=== PATIENT | female | born 1985 | race Caucasian/White ===

== ENCOUNTER → 2017-01-28 | Outpatient (CLI) | payer OTHER ==
--- NOTE | 2017-01-29 13:20 | REP ---
RIGHT FOOT SERIES: Four views of the right foot are performed. There is an oblique fracture of the shaft of the third proximal phalanx. This is not significantly displaced. No other acute fracture or dislocation is seen of the visualized osseous structures. Signed by Junito Chan MD 01/29/2017 07:02 P
== END ==
LOC: M WUC 15:19
PROVIDERS: ATTEND Physician Assistant
DX: S90.31XA Contusion of right foot, initial encounter (principal); W18.30XA Fall on same level, unspecified, initial encounter; Y92.009 Unspecified place in unspecified non-institutional (private) residence as the place of occurrence of the external cause

== ENCOUNTER → 2017-05-09 | Outpatient (REF) | payer OTHER ==
[2017-05-10 11:27] LABS: CHLAMYDIA DNA AMPLIFICATION NEGATIVE (NEGATIVE); GC DNA AMPLIFICATION NEGATIVE (NEGATIVE)
== END ==
LOC: M LAB REF 09:17
DX: R30.0 Dysuria (principal)

== ENCOUNTER 2018-02-02 12:22 | Emergency (ER) | payer OTHER ==
[2018-02-02] MEDS ORDERED: methylPREDNISolone INJ 125 MG/2 ML VIAL (J2930) IV (13:00)
[2018-02-02] MEDS: methylPREDNISolone 1,000 MG, VIAL MATE ADAPTER 1 EACH in D5W 250 ML IV (13:21)
[2018-02-02] MEDS ORDERED: PROHANCE 279.3MG/ML 5ML VIAL (A9576) As Ordered (22:07)
[2018-02-02] MEDS ORDERED: PROHANCE 279.3MG/ML 15ML VIAL (A9576) As Ordered (22:07)
== END 2018-02-03 00:55 | disposition home or self-care (01) ==
LOC: M ED 02-03 00:55
DX: H54.7 Unspecified visual loss (principal); H46.9 Unspecified optic neuritis; Z79.2 Long term (current) use of antibiotics; Z79.52 Long term (current) use of systemic steroids; Z79.899 Other long term (current) drug therapy
CPT/HCPCS: A9576

== ENCOUNTER 2018-02-03 13:57 | Emergency (ER) | payer OTHER ==
[2018-02-03] MEDS ORDERED: methylPREDNISolone INJ 125 MG/2 ML VIAL (J2930) IV (14:30)
[2018-02-03] MEDS: methylPREDNISolone 1,000 MG, VIAL MATE ADAPTER 1 EACH in D5W 250 ML IV (14:59)
== END 2018-02-03 16:36 | disposition home or self-care (01) ==
LOC: M ED 13:57
DX: H46.9 Unspecified optic neuritis (principal)
CPT/HCPCS: J2930

== ENCOUNTER 2018-02-04 14:35 | Emergency (ER) | payer OTHER ==
[2018-02-04] MEDS: methylPREDNISolone INJ 125 MG/2 ML VIAL (J2930) IV (15:50)
== END 2018-02-04 17:26 | disposition home or self-care (01) ==
LOC: M ED 14:35
DX: H46.9 Unspecified optic neuritis (principal); Z79.899 Other long term (current) drug therapy; Z79.52 Long term (current) use of systemic steroids; Z79.2 Long term (current) use of antibiotics
CPT/HCPCS: J2930

== ENCOUNTER → 2018-06-09 | Outpatient (CLI) | payer OTHER ==
[~2018-06-09] MED LIST: AMOX500C PO; PRED20TA PO; REFRSOL OU
[2018-06-09 12:06] LABS: FREE T4 0.99 NG/DL (0.76-1.46); THYROID STIMULATING HORMONE 2.03 uIU/ML (0.358-3.740)
== END ==
LOC: M LAB 11:15
PROVIDERS: ATTEND Obstetrics & Gynecology Obstetrics
DX: L65.9 Nonscarring hair loss, unspecified (principal)

== ENCOUNTER → 2018-06-11 | Outpatient (CLI) | payer OTHER ==
[2018-06-13 14:36] LABS: ANTINUCLEAR ANTIBODIES DIRECT Negative (Negative); DEHYDROEPIANDROSTERONE SULFATE 199.4 ug/dL (84.8-378.0)
[2018-06-14 00:06] LABS: TESTOSTERONE FREE (DIRECT) 0.6 pg/mL (0.0-4.2)
== END ==
LOC: M SMT 14:50
PROVIDERS: ATTEND Physician Assistant
DX: H46.8 Other optic neuritis (principal); L65.9 Nonscarring hair loss, unspecified

== ENCOUNTER → 2018-07-24 | Outpatient (CLI) | payer OTHER ==
[2018-07-24 13:48] LABS: HCG, SERUM QUALITATIVE POSITIVE (NEGATIVE)
[2018-07-24 13:58] LABS: HCG, SERUM QUANTITATIVE 22 MIU/ML
== END ==
LOC: M LAB 12:37
PROVIDERS: ATTEND Nurse Practitioner Adult Health
DX: N92.6 Irregular menstruation, unspecified (principal)

== ENCOUNTER 2018-08-22 11:59 | Emergency (ER) | payer OTHER ==
[~2018-08-22] VITALS: Ht 162.6 cm; Wt 103.6 kg
[2018-08-22] MEDS ORDERED: PREN29TA4 PO (12:11)
[2018-08-22 13:45] LABS: BASO % 0.6 % (0.0-1.0); EOS # 0.1 10^3/uL (0.0-0.50); EOS % 1.8 % (0.0-3.0); HEMATOCRIT 36.2 % (36.0-47.0); LYMPH # 1.9 10^3/uL (1.5-4.5); LYMPH % 28.2 % (24.0-44.0); MEAN CORPUSCULAR HEMOGLOBIN 30.5 pg (27.0-33.0); MEAN CORPUSCULAR HGB CONC 33.1 g/dl (32.0-36.5); MEAN CORPUSCULAR VOLUME 92.1 fl (80.0-96.0); MONO # 0.5 10^3/uL (0.0-0.8); MONO % 7.8 % (0.0-5.0); NEUTROPHILS # 4.2 10^3/uL (1.8-7.7); NEUTROPHILS % 61.5 % (36.0-66.0); PLATELET COUNT, AUTOMATED 345 10^3/uL (150-450); RED BLOOD COUNT 3.93 10^6/uL (4.00-5.40); WHITE BLOOD COUNT 6.8 10^3/uL (4.0-10.0)
--- NOTE | 2018-08-22 14:28 | REP ---
REASON: Vaginal bleeding times one week. COMPARISON EXAMINATION: None. Transvesical and transvaginal imaging was obtained. The uterus measures 9.1 x 5.2 x 5.8 cm. There is a small amount of free fluid in the endometrial cavity, however, there is no evidence of an intrauterine gestational sac. The right ovary measures 3 x 1.8 x 3.2 cm. In the substance of the right ovary, there is a 2.1 x 1.6 x 1.9 cm sized mixed echo structure predominantly anechoic, possibly representing an hemorrhagic cyst. Left ovary was not visualized. No left adnexal masses were noted. In the uterine parenchyma, the posterior hypoechoic nodule was seen on the left measuring 1.6 x 1.4 x 1.7 cm and on the right posteriorly another nodule was seen measuring 1.3 x 0.7 x 0.9 cm. In the anterior fundal portion of the uterus, a 1.3 x 1 x 1.1 cm nodule is seen. These are all consistent with myomatous changes. No abnormal fluid was seen in either adnexal space. IMPRESSION: 1. No ultrasonographic evidence of an intrauterine or extrauterine . Suspected resolving hemorrhagic right ovarian follicle as described above. 2. Uterine myomatous changes and other findings as described above. No beta hCG was available at the time this examination was performed. If the patient has a positive beta hCG, then I would recommend ultrasonographic followup as clinically indicated. The small amount of free fluid seen within the endometrial cavity could potentially represent an early gestational sac, however, Doppler of this region showed no cardiac activity, no pole, and no evidence of a yolk sac within the fluid collection. Electronically Signed by Albino Archer DO 08/22/2018 05:02 P
[2018-08-22 14:39] VITALS: BP 140/68
== END 2018-08-22 14:55 | disposition home or self-care (01) ==
LOC: M ED 11:59
DX: N93.9 Abnormal uterine and vaginal bleeding, unspecified (principal); N83.291 Other ovarian cyst, right side; D25.9 Leiomyoma of uterus, unspecified; H46.9 Unspecified optic neuritis; Z79.899 Other long term (current) drug therapy

== ENCOUNTER → 2018-08-24 | Outpatient (CLI) | payer OTHER ==
[~2018-08-24] MED LIST changes: +PREN29TA4 PO
== END ==
LOC: M SMT 11:43
PROVIDERS: ATTEND Obstetrics & Gynecology
DX: O20.0 Threatened abortion (principal); Z3A.00 Weeks of gestation of pregnancy not specified

== ENCOUNTER → 2018-08-29 | Outpatient (CLI) | payer OTHER | LOC: M SMT 15:27 | PROVIDERS: ATTEND Obstetrics & Gynecology | DX: O03.4 Incomplete spontaneous abortion without complication (principal) ==

== ENCOUNTER → 2018-09-06 | Outpatient (CLI) | payer OTHER | LOC: M SMT 11:34 | PROVIDERS: ATTEND Obstetrics & Gynecology | DX: O03.4 Incomplete spontaneous abortion without complication (principal); Z3A.00 Weeks of gestation of pregnancy not specified ==

== ENCOUNTER → 2019-01-29 | Outpatient (CLI) | payer OTHER | LOC: M LAB 11:36 | PROVIDERS: ATTEND Advanced Practice Midwife | DX: N91.2 Amenorrhea, unspecified (principal) ==

== ENCOUNTER → 2019-01-31 | Outpatient (CLI) | payer OTHER | LOC: M LAB 11:24 | PROVIDERS: ATTEND Advanced Practice Midwife | DX: N91.2 Amenorrhea, unspecified (principal) ==

== ENCOUNTER → 2019-02-07 | Outpatient (CLI) | payer OTHER | LOC: M LAB 11:24 | PROVIDERS: ATTEND Advanced Practice Midwife | DX: O03.4 Incomplete spontaneous abortion without complication (principal) ==

== ENCOUNTER → 2019-03-13 | Outpatient (CLI) | payer OTHER ==
[2019-03-13 14:13] LABS: PROGESTERONE 0.36 NG/ML; TOTAL 25(OH) VITAMIN D 26.5 NG/ML (30.0-100.0)
[2019-03-15 00:06] LABS: CARDIOLIPIN IGA ANTIBODY <9 APL U/mL (0-11); CARDIOLIPIN IGG ANTIBODY <9 GPL U/mL (0-14); CARDIOLIPIN IGM ANTIBODY 11 MPL U/mL (0-12)
== END ==
LOC: M SMT 11:37
PROVIDERS: ATTEND Advanced Practice Midwife
DX: O03.9 Complete or unspecified spontaneous abortion without complication (principal)

== ENCOUNTER → 2019-06-04 | Outpatient (CLI) | payer OTHER | LOC: M LAB 10:51 | PROVIDERS: ATTEND Advanced Practice Midwife | DX: O09.299 Supervision of pregnancy with other poor reproductive or obstetric history, unspecified trimester (principal) ==

== ENCOUNTER → 2019-06-06 | Outpatient (CLI) | payer OTHER | LOC: M LAB 10:51 | PROVIDERS: ATTEND Advanced Practice Midwife | DX: O09.299 Supervision of pregnancy with other poor reproductive or obstetric history, unspecified trimester (principal) ==

== ENCOUNTER → 2019-07-08 | Outpatient (CLI) | payer OTHER ==
[2019-07-08 13:52] LABS: BASO % 0.4 % (0.0-1.0); EOS # 0.1 10^3/uL (0.0-0.5); EOS % 1.4 % (0.0-3.0); HEMATOCRIT 35.8 % (36.0-47.0); LYMPH # 2.2 10^3/uL (1.5-5.0); LYMPH % 29.7 % (24.0-44.0); MEAN CORPUSCULAR HEMOGLOBIN 31.3 pg (27.0-33.0); MEAN CORPUSCULAR HGB CONC 33.5 g/dl (32.0-36.5); MEAN CORPUSCULAR VOLUME 93.5 fl (80.0-96.0); MONO # 0.6 10^3/uL (0.0-0.8); MONO % 8.3 % (0.0-5.0); NEUTROPHILS # 4.3 10^3/uL (1.5-8.5); NEUTROPHILS % 59.8 % (36.0-66.0); PLATELET COUNT, AUTOMATED 380 10^3/uL (150-450); RED BLOOD COUNT 3.83 10^6/uL (4.00-5.40); WHITE BLOOD COUNT 7.2 10^3/uL (4.0-10.0)
[2019-07-08 14:47] LABS: HEPATITIS C VIRUS ABY INDEX < 0.0 INDEX (<0.8); HIV 1&2 SCREEN CENTAUR NEGATIVE (NEGATIVE); RUBELLA IgG QUALITATIVE IMMUNE (IMMUNE)
[2019-07-08 15:23] LABS: CHLAMYDIA DNA AMPLIFICATION NEGATIVE (NEGATIVE); GC DNA AMPLIFICATION NEGATIVE (NEGATIVE)
== END ==
LOC: M PLALAB 11:18
PROVIDERS: ATTEND Advanced Practice Midwife
DX: Z34.81 Encounter for supervision of other normal pregnancy, first trimester (principal)

== ENCOUNTER → 2019-08-13 | Outpatient (REF) | payer OTHER | LOC: M PLALAB 11:45 | PROVIDERS: ATTEND Advanced Practice Midwife | DX: O99.211 Obesity complicating pregnancy, first trimester (principal) ==

== ENCOUNTER → 2019-08-30 | Outpatient (REF) | payer OTHER ==
[2019-08-30 18:11] LABS: ALT/SGPT 71 U/L (12-78); BILIRUBIN,TOTAL 0.2 MG/DL (0.2-1.0); CREATININE FOR GFR 0.51 MG/DL (0.55-1.30); GLOMERULAR FILTRATION RATE > 60.0 (>60); LDH LACTATE DEHYDROGENASE 147 U/L (84-246); URIC ACID 2.6 MG/DL (2.6-6.0)
[2019-08-30 18:31] LABS: CREATININE,RANDOM URINE 25.9 MG/DL; TOTAL PROTEIN,RANDOM URINE 6.9 MG/DL (0.0-12.0)
== END ==
LOC: M PLALAB 14:14
PROVIDERS: ATTEND Advanced Practice Midwife
DX: O10.012 Pre-existing essential hypertension complicating pregnancy, second trimester (principal)

== ENCOUNTER → 2019-09-17 | Outpatient (CLI) | payer OTHER ==
--- NOTE | 2019-09-18 02:25 | REP ---
Clinical: Anatomical evaluation. Comparison: None. Findings: Examination demonstrates a single live intrauterine in breech presentation. motion is identified by technologist. Placenta is noted posterior fundal and grade I without evidence for placenta previa or abruption. Amniotic fluid volume is normal. Cervix measures 4.4 cm in length and appears closed. No evidence for nuchal cord. Gestational age by current measurements 18 weeks 5 days with TURNER 02/17/2020 . FHR equals 140 beats per minute. BPD 3.9 cm 18w0d HC 15.6 cm 18w4d AC 14.9 cm 20w1d FL 3.0 cm 19w1d HL 2.9 cm 19w4d HC/AC ratio 1.05 Estimated weight 296 grams (> 97th percentile). Anatomical assessment demonstrates normal structures including cranium, choroid plexus, cavum, cerebellum/posterior fossa, facial features, lungs, four-chamber heart/ventricular outflow tracts, diaphragm, stomach, cord insertion/three-vessel cord, kidneys/bladder, spine, and extremities. Impression: Anatomical assessment is complete and within normal limits.
== END ==
LOC: M WHC 15:00
PROVIDERS: ATTEND Advanced Practice Midwife
DX: O10.012 Pre-existing essential hypertension complicating pregnancy, second trimester (principal); Z3A.18 18 weeks gestation of pregnancy

== ENCOUNTER → 2019-11-13 | Outpatient (REF) | payer OTHER ==
[2019-11-13 13:33] LABS: HEMATOCRIT 31.9 % (36.0-47.0); HEMOGLOBIN 10.4 g/dl (12.0-15.5); MEAN CORPUSCULAR HEMOGLOBIN 31.3 pg (27.0-33.0); MEAN CORPUSCULAR HGB CONC 32.6 g/dl (32.0-36.5); MEAN CORPUSCULAR VOLUME 96.1 fl (80.0-96.0); PLATELET COUNT, AUTOMATED 344 10^3/uL (150-450); RED BLOOD COUNT 3.32 10^6/uL (4.00-5.40); WHITE BLOOD COUNT 9.8 10^3/uL (4.0-10.0)
== END ==
LOC: M PLALAB 10:55
PROVIDERS: ATTEND Advanced Practice Midwife
DX: Z00.00 Encounter for general adult medical examination without abnormal findings (principal)

== ENCOUNTER → 2019-12-17 | Outpatient (CLI) | payer OTHER ==
--- NOTE | 2020-01-02 18:08 | REP ---
OB ULTRASOUND WITH BIOPHYSICAL PROFILE: FINDINGS: Real time sonographic evaluation of the gravid uterus is performed. There is a single living intrauterine gestation. The estimated gestational age is reportedly 31 weeks 1 day, EDC 02/17/20. position is breech. The cervix is closed and measures 3.2 cm in length. heart rate is 152 beats per minute. Placenta is posterior and grade 2. Biophysical profile score is 8/8. PRIYANKA is 13.74. S/D ratio umbilical artery is 2.9. BIOMETRY CHART: BPD 76 mm 30 weeks 5 days 25th percentile Head circumference 282 mm 31 weeks 0 days 12th percentile Abdominal circumference 264 mm 30 weeks 4 days 30th percentile Femur length 63 mm 32 weeks 5 days 76th percentile The estimated weight is 1729 grams, at the 41st percentile. These measurements indicate appropriate growth. MTDD
== END ==
LOC: M WHC 09:35
PROVIDERS: ATTEND Advanced Practice Midwife
DX: O10.919 Unspecified pre-existing hypertension complicating pregnancy, unspecified trimester (principal)